=== PATIENT | female | born 1940 | race Caucasian/White ===

== ENCOUNTER 2017-03-05 19:21 | Emergency (ER) | payer MEDICARE, OTHER ==
[~2017-03-05] VITALS: Ht 154.9 cm; Wt 77.1 kg
[2017-03-05] MEDS ORDERED: CALCIUM (19:53)
[2017-03-05] MEDS ORDERED: ASPIRIN (19:53)
[2017-03-05] MEDS ORDERED: TYLENOL (19:53)
[2017-03-05] MEDS ORDERED: OLME5TAB3 (19:53)
--- NOTE | 2017-03-05 19:53 | NUR ---
PT CAN NOT REMEMBER ALL HER HOME MEDICATION. HER DOUGHTER WILL BRING HOME MEDICINE LATER.
--- NOTE | 2017-03-05 20:01 | NUR ---
LOREE RODRIGUEZ AT BEDSIDE FOR MSE.
--- NOTE | 2017-03-05 20:06 | NUR ---
PT C/O STABBING MIDLINE ABDOMINAL PAIN. DENIES N/V. DAUGHTER AT BEDSIDE. EKG COMPLETED.
[2017-03-05] MEDS ORDERED: ACETAMINOPHEN/CODEINE 300-30 MG TABLET PO ONE (20:15)
[2017-03-05] MEDS ORDERED: ACETAMINOPHEN/CODEINE 300-30 MG TABLET ONE (20:26)
[2017-03-05 20:32] LABS: BASOPHILS # (AUTO) 0.1 K/uL (0.0-8.0); EOSINOPHILS # (AUTO) 0.2 K/uL (0.0-0.7); EOSINOPHILS % (AUTO) 2.8 % (0.0-7.0); HEMATOCRIT 39.6 % (31.2-41.9); HEMOGLOBIN 13.5 g/dL (10.9-14.3); LYMPHOCYTES # (AUTO) 2.3 K/uL (20.0-40.0); LYMPHOCYTES % (AUTO) 30.9 % (20.5-51.5); MEAN CORPUSCULAR HEMOGLOBIN 29.5 uug (24.7-32.8); MEAN CORPUSCULAR HGB CONC 34 g/dL (32.3-35.6); MEAN CORPUSCULAR VOLUME 86.5 fL (75.5-95.3); MONOCYTES # (AUTO) 0.7 K/uL (2.0-10.0); MONOCYTES % (AUTO) 10.1 % (0.0-11.0); NEUTROPHILS # (AUTO) 4.1 K/uL (1.8-8.9); NEUTROPHILS % (AUTO) 55.2 % (38.5-71.5); PLATELET COUNT (AUTO) 241 K/uL (179-408); RED BLOOD CELL COUNT(AUTO) 4.58 MIL/uL (3.63-4.92); WHITE BLOOD COUNT (AUTO) 7.4 K/uL (3.8-11.8)
[2017-03-05 20:44] LABS: ALANINE AMINOTRANSFERASE 26 U/L (14-59); ALKALINE PHOSPHATASE 121 U/L (50-136); ASPARTATE AMINOTRANSFERASE 14 U/L (15-37); BILIRUBIN,DIRECT 0.1 mg/dL (0.0-0.2); BILIRUBIN,TOTAL 0.3 mg/dL (0.2-1.0); CARBON DIOXIDE 29 mmol/L (21-32); CHLORIDE 105 mmol/L (98-107); CREATININE 1.1 mg/dL (0.6-1.3); GLUCOSE 108 mg/dL (74-106); LIPASE 223 U/L (73-393); POTASSIUM 3.5 mmol/L (3.5-5.1); TOTAL PROTEIN, SERUM 7.4 g/dL (6.4-8.2); UREA NITROGEN, BLOOD 26 mg/dL (7-18)
--- NOTE | 2017-03-05 22:49 | NUR ---
Patient discharged to home in stable conditon. Written and verbal after care instructions given. Patient verbalizes understanding of instructions. PT accompanied by daughters. Ambulated from ER w/ steady gait.
[2017-03-05 23:10] VITALS: BP 148/81
== END 2017-03-05 23:05 | disposition home or self-care (01) ==
LOC: ER 19:22
DX: S22.41XD Multiple fractures of ribs, right side, subsequent encounter for fracture with routine healing (principal); K57.30 Diverticulosis of large intestine without perforation or abscess without bleeding; I10 Essential (primary) hypertension; E11.9 Type 2 diabetes mellitus without complications; J45.909 Unspecified asthma, uncomplicated; M19.90 Unspecified osteoarthritis, unspecified site; Z79.82 Long term (current) use of aspirin; X58.XXXD Exposure to other specified factors, subsequent encounter
CPT/HCPCS: 36415; 71250; 74176; 80048; 80076; 83690; 84484; 85025; 85730; 93005; 99285; A4663; 70030-TC

== ENCOUNTER 2017-10-19 10:49 | Emergency (ER) | payer MEDICARE, OTHER ==
[~2017-10-19] VITALS: Ht 154.9 cm; Wt 79.4 kg
[~2017-10-19 10:49] MED LIST: ASPIRIN; CALCIUM; OLME5TAB3; TYLENOL
[2017-10-19] MEDS ORDERED: MONT10TA22 PO (11:05)
[2017-10-19] MEDS ORDERED: FURO20TA4 PO (11:05)
[2017-10-19] MEDS ORDERED: CARV6.252 PO (11:05)
[2017-10-19] MEDS ORDERED: BROM3DRO OP (11:05)
[2017-10-19] MEDS ORDERED: GABA-534 PO (11:05)
[2017-10-19] MEDS ORDERED: DICL1ADH11 TP (11:05)
[2017-10-19] MEDS ORDERED: ASPI-605 PO (11:05)
[2017-10-19] MEDS ORDERED: CELE200C PO (11:08)
[2017-10-19] MEDS ORDERED: ROSU10TA PO (11:08)
[2017-10-19] MEDS ORDERED: [UNRECOGNIZED DRUG - OTHER] PO (11:08)
--- NOTE | 2017-10-19 11:25 | NUR ---
is at patient's bedside doing the MSE.
[2017-10-19] MEDS ORDERED: KETOROLAC TROMETHAMINE 30 MG INJ ONE (11:40)
[2017-10-19 11:44] LABS: BASOPHILS # (AUTO) 0.1 K/uL (0.0-8.0); BASOPHILS % (AUTO) 1.1 % (0.0-2.0); EOSINOPHILS # (AUTO) 0.1 K/uL (0.0-0.7); EOSINOPHILS % (AUTO) 2.2 % (0.0-7.0); HEMATOCRIT 41.1 % (31.2-41.9); HEMOGLOBIN 13.9 g/dL (10.9-14.3); LYMPHOCYTES # (AUTO) 1.8 K/uL (20.0-40.0); LYMPHOCYTES % (AUTO) 32.5 % (20.5-51.5); MEAN CORPUSCULAR HEMOGLOBIN 29.4 uug (24.7-32.8); MEAN CORPUSCULAR HGB CONC 34 g/dL (32.3-35.6); MONOCYTES # (AUTO) 0.7 K/uL (2.0-10.0); MONOCYTES % (AUTO) 11.7 % (0.0-11.0); NEUTROPHILS % (AUTO) 52.5 % (38.5-71.5); PLATELET COUNT (AUTO) 237 K/uL (179-408); RED BLOOD CELL COUNT(AUTO) 4.72 MIL/uL (3.63-4.92); WHITE BLOOD COUNT (AUTO) 5.7 K/uL (3.8-11.8)
[2017-10-19] MEDS ORDERED: KETOROLAC TROMETHAMINE 30 MG INJ IM ONE (11:45)
[2017-10-19 11:52] LABS: CARBON DIOXIDE 26 mmol/L (21-32); CHLORIDE 106 mmol/L (98-107); CREATININE 0.9 mg/dL (0.6-1.3); GLUCOSE 113 mg/dL (74-106); POTASSIUM 3.7 mmol/L (3.5-5.1); UREA NITROGEN, BLOOD 11 mg/dL (7-18)
[2017-10-19 12:08] LABS: ALANINE AMINOTRANSFERASE 25 U/L (14-59); ALKALINE PHOSPHATASE 74 U/L (50-136); ASPARTATE AMINOTRANSFERASE 16 U/L (15-37); BILIRUBIN,DIRECT 0.1 mg/dL (0.0-0.2); BILIRUBIN,TOTAL 0.4 mg/dL (0.2-1.0); TOTAL PROTEIN, SERUM 7.5 g/dL (6.4-8.2)
--- NOTE | 2017-10-19 12:17 | NUR ---
Patient discharged to home in stable conditon. Written and verbal after care instructions given to patient's daughter. Patient's daughter and patient verbalized understanding of instructions.
== END 2017-10-19 12:19 | disposition home or self-care (01) ==
LOC: ER 10:49
DX: M75.92 Shoulder lesion, unspecified, left shoulder (principal); I10 Essential (primary) hypertension; J45.909 Unspecified asthma, uncomplicated
CPT/HCPCS: 36415; 71045; 73030; 80048; 80076; 84484; 85025; 85730; 93005; 96372; 99285; A4663; J1885; 70030-TC

== ENCOUNTER 2017-11-20 13:18 | Emergency (ER) | payer MEDICARE, OTHER ==
[~2017-11-20] VITALS: Ht 154.9 cm; Wt 77.1 kg
[~2017-11-20 13:18] MED LIST changes: +ASPI-605 PO; -ASPIRIN; +BROM3DRO OP; -CALCIUM; +CARV6.252 PO; +CELE200C PO; +DICL1ADH11 TP; +FURO20TA4 PO; +GABA-534 PO; +MONT10TA22 PO; -OLME5TAB3; +ROSU10TA PO; -TYLENOL; +[UNRECOGNIZED DRUG - OTHER] PO
--- NOTE | 2017-11-20 14:00 | NUR ---
PT REFUESD THE TETANUS. PT DAUGHTER AT BEDSIDE TRANSLATING
--- NOTE | 2017-11-20 14:15 | NUR ---
SOAKED THE AFFECTED FINGER IN STERILE NS AND H2O2.
[2017-11-20] MEDS ORDERED: NEOMY/BACITRA/POLYMYXIN B OINT UD PACKET TP ONE (14:57)
--- NOTE | 2017-11-20 15:00 | NUR ---
PT TOOK THE NEEDLE OUT HER SELF, THE NEEDLE INTACT. NO BLEEDING. PT FELT RELIEF AFTER, ABLE TO MOVE THE THUMB, NO SENSORY LOSS.
--- NOTE | 2017-11-20 15:05 | NUR ---
Patient discharged to home in stable conditon. Written and verbal after care instructions given. Patient verbalizes understanding of instructions.PT WALKS IN STEADY GAIT. PT DAUGHTER WILL ARRANGE TRANSPORT FOR DAUGHTER
== END 2017-11-20 15:00 | disposition home or self-care (01) ==
LOC: ER 13:18
DX: S60.352A Superficial foreign body of left thumb, initial encounter (principal); I10 Essential (primary) hypertension; J45.909 Unspecified asthma, uncomplicated; E11.9 Type 2 diabetes mellitus without complications; W45.8XXA Other foreign body or object entering through skin, initial encounter; Y93.89 Activity, other specified; Y92.89 Other specified places as the place of occurrence of the external cause; Y99.8 Other external cause status
CPT/HCPCS: A4663

== ENCOUNTER 2019-08-15 22:30 | Emergency (ER) | payer MEDICARE, OTHER ==
[~2019-08-15] VITALS: Ht 160 cm; Wt 79.4 kg
[~2019-08-15 22:30] MED LIST changes: -ROSU10TA PO; +ROSU10TA2 PO
--- NOTE | 2019-08-15 23:22 | NUR ---
Crutches dispensed. Pt instructed on proper use of crutches. Patient able to demonstrate correct use of crutches.
--- NOTE | 2019-08-15 23:30 | NUR ---
Patient discharged to home in stable condition with daughter taking patient home. Written and verbal after care instructions given. Patient verbalizes understanding of instructions. Stressed follow up or return to ER for worsening s/s.
[2019-08-15 23:33] VITALS: BP 149/88
== END 2019-08-15 23:40 | disposition home or self-care (01) ==
LOC: ER 22:34
DX: S93.401A Sprain of unspecified ligament of right ankle, initial encounter (principal); W01.0XXA Fall on same level from slipping, tripping and stumbling without subsequent striking against object, initial encounter; Y92.89 Other specified places as the place of occurrence of the external cause; I10 Essential (primary) hypertension; E11.9 Type 2 diabetes mellitus without complications; J45.909 Unspecified asthma, uncomplicated
CPT/HCPCS: 73610; A4663

== ENCOUNTER 2020-10-20 09:45 | Emergency (ER) | payer MEDICARE, OTHER ==
[~2020-10-20] VITALS: Ht 162.6 cm; Wt 83.9 kg
[~2020-10-20 09:45] MED LIST changes: -DICL1ADH11 TP; +DICL1PAT13 TP
[2020-10-20] MEDS ORDERED: ALBU6.7H9 INH (10:17)
[2020-10-20] MEDS ORDERED: ACET-2154 PO (10:17)
--- NOTE | 2020-10-20 10:39 | NUR ---
Patient is resting comfortably on gurney with eyes closed. PATIENT IS PAIN FREE AT THIS TIME.
[2020-10-20] MEDS ORDERED: IV NORMAL SALINE 500 ML BAG IV ONE (11:00)
[2020-10-20] MEDS ORDERED: AZITHROMYCIN 250 MG TABLET PO ONE (11:00)
[2020-10-20] MEDS ORDERED: CEFTRIAXONE 1 G in IV DEXTROSE 5% 50 ML IV ONE (11:00)
[2020-10-20] MEDS ORDERED: AZITHROMYCIN 250 MG TABLET ONE (11:11)
[2020-10-20] MEDS ORDERED: CEFTRIAXONE /D5W 50ML IVPB **ER PYXIS IV ONE (11:11)
[2020-10-20 11:32] LABS: HEMATOCRIT 40.5 % (31.2-41.9); MEAN CORPUSCULAR VOLUME 86.6 fL (75.5-95.3); PLATELET COUNT (AUTO) 196 K/uL (179-408)
[2020-10-20 11:38] LABS: CREATININE 0.9 mg/dL (0.6-1.3); POTASSIUM 3.7 mmol/L (3.5-5.1)
[2020-10-20] MEDS ORDERED: AZIT250T13 PO (11:52)
--- NOTE | 2020-10-20 11:53 | NUR ---
IV removed. Catheter intact and site benign. Pressure and 4x4 gauze applied to site. No bleeding noted. Patient discharged to home in stable condition. Written and verbal after care instructions given to patient in Spanish by ALFONSO King. Patient verbalizes understanding and compliance of instructions. Stressed follow up with her primary doctor or return to ER for worsening s/s.
[2020-10-28] MEDS ORDERED: METH4TAB3 PO (08:47)
== END 2020-10-20 11:55 | disposition home or self-care (01) ==
LOC: ER 09:45
DX: U07.1 COVID-19 (principal); Z87.442 Personal history of urinary calculi; J45.909 Unspecified asthma, uncomplicated; Z87.01 Personal history of pneumonia (recurrent); E11.9 Type 2 diabetes mellitus without complications; Z79.82 Long term (current) use of aspirin; Z79.899 Other long term (current) drug therapy; I10 Essential (primary) hypertension; M19.90 Unspecified osteoarthritis, unspecified site; M85.80 Other specified disorders of bone density and structure, unspecified site; R91.8 Other nonspecific abnormal finding of lung field
CPT/HCPCS: 36415; 71045; 80048; 85025; 87040; 96365; 99284; J0696; A4663; Q0144

== ENCOUNTER 2020-10-22 21:44 | Inpatient (IN) | payer MEDICARE, OTHER ==
[~2020-10-22] VITALS: Ht 165.1 cm; Wt 84.8 kg
[~2020-10-22 21:44] MED LIST changes: +ACET-2154 PO; +ALBU6.7H9 INH; +AZIT250T13 PO
--- NOTE | 2020-10-22 22:05 | NUR ---
Dr. Galeas at bedside for MSE.
[2020-10-22 22:32] LABS: ABG BASE EXCESS -2.5 mmol/L; ABG HCO3 21.5 mmol/L; ABG PCO2 34.9 mmHg (35.0-45.0); ABG PH 7.407 (7.350-7.450); ABG PO2 59.8 mmHg (75.0-100.0); ABG SITE LEFT RADIAL; ABG TOTAL HEMOGLOBIN 15.2 G/dL (12.0-16.0); COHb 1.2 % (0.5-1.5); O2Hb 89.9 % (94.0-97.0); VENT MODE ROOM AIR
--- NOTE | 2020-10-22 22:35 | NUR ---
Xray at bedside.
[2020-10-22] MEDS ORDERED: IV NS 1000 ML 1,000 ML IV ONE (23:00)
[2020-10-22] MEDS ORDERED: DEXAMETHASONE SOD PHOSPHATE 4 MG INJ IV ONE (23:00)
[2020-10-22] MEDS ORDERED: AZITHROMYCIN IV 500 MG in IV DEXTROSE 5% 250 ML IV ONE (23:00)
[2020-10-22] MEDS ORDERED: CEFTRIAXONE 1 G in IV DEXTROSE 5% 50 ML IV ONE (23:00)
[2020-10-22 23:04] LABS: MEAN CORPUSCULAR HEMOGLOBIN 28.9 uug (24.7-32.8); MEAN CORPUSCULAR VOLUME 86.1 fL (75.5-95.3); PLATELET COUNT (AUTO) 173 K/uL (179-408)
[2020-10-22] MEDS ORDERED: CEFTRIAXONE /D5W 50ML IVPB **ER PYXIS IV ONE (23:06)
[2020-10-22] MEDS ORDERED: DEXAMETHASONE SOD PHOSPHATE 10 MG INJ ONE (23:07)
[2020-10-22] MEDS ORDERED: AZITHROMYCIN 500MG/ D5W 250ML IVPB **ER PYXIS ONLY IV ONE (23:07)
[2020-10-22] MEDS ORDERED: ONDANSETRON 4 MG/2 ML VIAL ONE (23:10)
[2020-10-22 23:12] LABS: POTASSIUM 3.4 mmol/L (3.5-5.1)
[2020-10-22] MEDS ORDERED: ONDANSETRON 4 MG/2 ML VIAL IV ONE (23:15)
[2020-10-22 23:30] LABS: BILIRUBIN,TOTAL 0.4 mg/dL (0.2-1.0); TOTAL PROTEIN, SERUM 7.8 g/dL (6.4-8.2)
--- NOTE | 2020-10-22 23:34 | NUR ---
Language barrier present. Mostly burundian speaking. Patient unable to recall home medications at this time. Called patient's daughter, Alejandro Rick who states patient is non complaint with home medications and is unable to provide complete home medication at thsi time.
--- NOTE | 2020-10-23 00:05 | NUR ---
Called [facility] to page Dr. Chan Yanes.
--- NOTE | 2020-10-23 00:25 | NUR ---
Dr. Galeas on panel call with Dr. Chan Yanes. Pt accepted for admission to [facility], diagnosis: covid pneumonia.
[2020-10-23] MEDS ORDERED: MAGNESIUM HYDROXIDE 30 ML LIQUID UDC PO PRN (00:45)
[2020-10-23] MEDS ORDERED: Z GUARD REMEDY PASTE 57 GM TUBE TOP PRN (00:45)
[2020-10-23] MEDS ORDERED: HYDROCODONE/APAP 5-325MG TABLET PO PRN (00:45)
[2020-10-23] MEDS ORDERED: ONDANSETRON 4 MG/2 ML VIAL IV PRN (00:45)
--- NOTE | 2020-10-23 01:36 | NUR ---
Report given to [facility] Tele.
[2020-10-23 02:31] VITALS: BP 122/68
[2020-10-23] MEDS: ENOXAPARIN SODIUM 40 MG/0.4 ML DISP.SYRIN SQ SCH ×2 (02:44→20:25)
[2020-10-23 04:45] VITALS: BP 101/52
[2020-10-23] MEDS: PANTOPRAZOLE SODIUM 40 MG TABLET.DR PO SCH (06:04)
--- NOTE | 2020-10-23 06:52 | NUR ---
Pt admitted to Tele in stable condition. Denies pain or SOB. Denies having nausea at this time. On 3L NC sating at 93%. IV site is intact. Covid precautions are in place. Safety and comfort provided, will endorse to day shift.
--- NOTE | 2020-10-23 07:30 | NUR ---
RECEIVED PT AWAKE, ALERT AND ORIENTEDX4. PT IN NO ACUTE RESPIRATORY DISTRESS. PT ON 2L NASAL CANNULA. PT CAN MAKE HER NEEDS KNOWN. SAFETY AND COMFORT PROVIDED. WILL CONTINUE TO MONITOR.
[2020-10-23] MEDS: ASPIRIN EC 81 MG TABLET.DR PO SCH (08:31)
[2020-10-23] MEDS: GABAPENTIN 300 MG CAPSULE PO SCH ×2 (08:31→16:21)
[2020-10-23] MEDS: CARVEDILOL 6.25 MG TABLET PO SCH (08:39)
[2020-10-23] MEDS: ALBUTEROL SULFATE 8 GM HFA.AER.AD INH SCH ×4 (09:30→21:00)
[2020-10-23 11:43] VITALS: BP 101/64
[2020-10-23] MEDS ORDERED: REMDESIVIR (CHARGED) 200 MG in IV NORMAL SALINE 210 ML IV ONE (13:00)
[2020-10-23] MEDS: POTASSIUM CHLORIDE 20 MEQ in IV NS 1000 ML 1,000 ML IV PRN (15:43)
[2020-10-23 16:00] VITALS: BP 102/61
--- NOTE | 2020-10-23 16:21 | NUR ---
PT REFUSED VENTOLIN INHALER. PT STATED SHE'S FINE FOR NOW. PT IN NO ACUTE DISTRESS. 2 INVENTORY REPRESENTATIVE EXTENSION GIVEN TO PT. 1 BLACK, 1 WHITE.
--- NOTE | 2020-10-23 18:11 | NUR ---
PT IN NO ACUTE DISTRESS. PT ON 2L NASAL CANNULA. PT REMDESIVIR ONE TIME GIVEN . PT TOLERATED IT WELL. PT IV INTACT.PRESCRIBED MEDICATION GIVEN AND PT TOLERATED IT WELL. PT CAN MAKE HER NEEDS KNOWN. SAFETY AND COMFORT PROVIDED. WILL CONTINUE ENDORSE TO INCOMING NURSE FOR CONTINUITY OF CARE.
[2020-10-23 20:00] VITALS: BP 105/50
[2020-10-23] MEDS: ATORVASTATIN 20 MG TABLET PO SCH (20:23)
[2020-10-23] MEDS: DEXAMETHASONE SOD PHOSPHATE 10 MG INJ IV SCH (20:23)
[2020-10-24] VITALS (7 sets, daily range): BP systolic 95–136; BP diastolic 46–89
[2020-10-24] MEDS: POTASSIUM CHLORIDE 20 MEQ in IV NS 1000 ML 1,000 ML IV PRN (03:15)
[2020-10-24] MEDS: PANTOPRAZOLE SODIUM 40 MG TABLET.DR PO SCH (06:11)
[2020-10-24 06:31] LABS: HEMATOCRIT 41.6 % (31.2-41.9); MEAN CORPUSCULAR VOLUME 87.3 fL (75.5-95.3); PLATELET COUNT (AUTO) 204 K/uL (179-408)
--- NOTE | 2020-10-24 06:50 | NUR ---
Patient AAOX4, no sob, no respiratory distress noted, o2 2LPm via NC, will continue to monitor for breathing.
[2020-10-24 07:31] LABS: THYROID STIMULATING HORMONE 0.147 mIU/mL (0.358-3.740)
[2020-10-24 07:38] LABS: MAGNESIUM 2.4 mg/dL (1.8-2.4); PHOSPHOROUS 3.2 mg/dL (2.5-4.9); POTASSIUM 4.6 mmol/L (3.5-5.1)
[2020-10-24] MEDS ORDERED: SWABABLE VALVE TRANSFER SET EA MC ONE (07:48)
[2020-10-24] MEDS ORDERED: IV NORMAL SALINE 250 ML IV ONE (07:49)
[2020-10-24] MEDS ORDERED: IOHEXOL 300MG/ML 100 ML INFUS..BTL ONE (07:49)
[2020-10-24] MEDS: DEXAMETHASONE SOD PHOSPHATE 10 MG INJ IV SCH (09:04)
[2020-10-24] MEDS: CARVEDILOL 6.25 MG TABLET PO SCH (09:04)
[2020-10-24] MEDS: GABAPENTIN 300 MG CAPSULE PO SCH ×2 (09:04→16:53)
[2020-10-24] MEDS: ASPIRIN EC 81 MG TABLET.DR PO SCH (09:29)
[2020-10-24 09:35] LABS: ALANINE AMINOTRANSFERASE 26 U/L (14-59); ASPARTATE AMINOTRANSFERASE 32 U/L (15-37)
[2020-10-24] MEDS: REMDESIVIR (CHARGED) 100 MG in IV NORMAL SALINE 100 ML IV SCH (11:44)
[2020-10-24] MEDS ORDERED: ALBUTEROL SULFATE 8 GM HFA.AER.AD INH PRN (13:00)
--- NOTE | 2020-10-24 18:30 | NUR ---
Patient is alert/oriented x4. Denies pain during the shift. Patient is refusing oxygen, she is saturating at 96% on RA. PCR COVID TEST is positive per [facility] report form the lab. Dr Tamayo made aware. ordered ECHO for cardionamegaly and congestion, done at 1800H. No distress identified. Frequent visual check done. Kept call light within reach. Assisted with ADLs. All needs attended. Kept environment safe. All due meds given as ordered. Will endorse to the next shift for continuity of care.
[2020-10-24] MEDS: ATORVASTATIN 20 MG TABLET PO SCH (20:20)
[2020-10-24] MEDS: ENOXAPARIN SODIUM 40 MG/0.4 ML DISP.SYRIN SQ SCH (20:37)
[2020-10-25 00:09] VITALS: BP 120/54
[2020-10-25 04:00] VITALS: BP 108/57
[2020-10-25 04:25] VITALS: BP 108/57
[2020-10-25] MEDS: PANTOPRAZOLE SODIUM 40 MG TABLET.DR PO SCH (06:04)
[2020-10-25 08:04] LABS: BILIRUBIN,DIRECT 0.1 mg/dL (0.0-0.2); BILIRUBIN,TOTAL 0.3 mg/dL (0.2-1.0); CREATININE 0.9 mg/dL (0.6-1.3); POTASSIUM 4.2 mmol/L (3.5-5.1); TOTAL PROTEIN, SERUM 6.3 g/dL (6.4-8.2)
[2020-10-25] MEDS: ACETAMINOPHEN 325 MG TABLET PO PRN ×2 (08:20→20:32)
[2020-10-25] MEDS: ASPIRIN EC 81 MG TABLET.DR PO SCH (08:20)
[2020-10-25] MEDS: CARVEDILOL 6.25 MG TABLET PO SCH (08:21)
[2020-10-25] MEDS: GABAPENTIN 300 MG CAPSULE PO SCH ×2 (08:21→16:11)
[2020-10-25] MEDS: DEXAMETHASONE SOD PHOSPHATE 10 MG INJ IV SCH (08:23)
--- NOTE | 2020-10-25 11:21 | NUR ---
NO ACUTE CHANGE FROM MORNING ASSESSMENT SATURATING 93% ON 3L NC. UP AND ABOUT IN ROOM, BRP
[2020-10-25 11:28] LABS: HEMATOCRIT 37.9 % (31.2-41.9); MEAN CORPUSCULAR HEMOGLOBIN 29.2 uug (24.7-32.8); PLATELET COUNT (AUTO) 204 K/uL (179-408)
[2020-10-25 12:00] VITALS: BP 111/79
[2020-10-25] MEDS: REMDESIVIR (CHARGED) 100 MG in IV NORMAL SALINE 100 ML IV SCH (12:59)
[2020-10-25 16:00] VITALS: BP 104/59
--- NOTE | 2020-10-25 20:00 | NUR ---
Received patient lying in bed AAOx3. Denies any pain or SOB. Sinus angela on tele at 56/min. IV site on right wrist intact and patent. COVID precaution observed. Needs assessed and attended to. Safety measure initiated and call montgomery within reached. Addendum: 10/25/20 at 2134 by EM JARRETT RN On O2 at 3LPM via NC. O2 sat at 98%. No coughing noted.
[2020-10-25 20:25] VITALS: BP 125/55
[2020-10-25] MEDS: ENOXAPARIN SODIUM 40 MG/0.4 ML DISP.SYRIN SQ SCH (20:32)
[2020-10-25] MEDS: ATORVASTATIN 20 MG TABLET PO SCH (20:32)
[2020-10-26 00:20] VITALS: BP 123/56
[2020-10-26 04:25] VITALS: BP 126/61
--- NOTE | 2020-10-26 06:03 | NUR ---
Patient slept well last night. Remains AAOx3. Denies any pain or SOB. Sinus angela on tele at 52/min. IV site on right wrist intact and patent. O2 at 3LPM via NC in place. O2 sat at 98%. No coughing noted. Afebrile. COVID precaution maintained. Needs attended to and met. Safety measure maintained and call montgomery within reached.
[2020-10-26] MEDS: PANTOPRAZOLE SODIUM 40 MG TABLET.DR PO SCH (06:10)
[2020-10-26 06:35] LABS: HEMATOCRIT 38.3 % (31.2-41.9); MEAN CORPUSCULAR HEMOGLOBIN 29.1 uug (24.7-32.8); MEAN CORPUSCULAR VOLUME 84.7 fL (75.5-95.3); PLATELET COUNT (AUTO) 197 K/uL (179-408)
[2020-10-26 07:04] LABS: BILIRUBIN,DIRECT 0.1 mg/dL (0.0-0.2); BILIRUBIN,TOTAL 0.3 mg/dL (0.2-1.0); CREATININE 0.9 mg/dL (0.6-1.3); TOTAL PROTEIN, SERUM 6.4 g/dL (6.4-8.2)
--- NOTE | 2020-10-26 07:45 | NUR ---
AWAKE ALERT AND ORIENTED X3 NO SS OF PAIN OR SOB WITH 3L O2 NC SATURATING 92-93%. CONTINUE WITH PLAN OF CARE.
[2020-10-26] MEDS: ASPIRIN EC 81 MG TABLET.DR PO SCH (08:17)
[2020-10-26] MEDS: DEXAMETHASONE SOD PHOSPHATE 10 MG INJ IV SCH (08:18)
[2020-10-26] MEDS: CARVEDILOL 6.25 MG TABLET PO SCH (08:19)
[2020-10-26] MEDS: ACETAMINOPHEN 325 MG TABLET PO PRN (08:20)
[2020-10-26] MEDS: GABAPENTIN 300 MG CAPSULE PO SCH ×2 (08:20→15:40)
[2020-10-26] MEDS: GUAIFENESIN/CODEINE 5 ML LIQUID UDC PO PRN ×2 (09:09→19:35)
[2020-10-26 12:00] VITALS: BP 117/64
[2020-10-26] MEDS: REMDESIVIR (CHARGED) 100 MG in IV NORMAL SALINE 100 ML IV SCH (12:29)
--- NOTE | 2020-10-26 14:58 | NUR ---
TOLERATING O2 AT 3L NC SATURATING 93%. DENIES PAIN OR SOB SB ON MONITOR
[2020-10-26 16:00] VITALS: BP 121/62
[2020-10-26 20:20] VITALS: BP 134/84
[2020-10-26] MEDS: ENOXAPARIN SODIUM 40 MG/0.4 ML DISP.SYRIN SQ SCH (20:22)
[2020-10-26] MEDS: ATORVASTATIN 20 MG TABLET PO SCH (20:22)
--- NOTE | 2020-10-26 21:12 | NUR ---
Received pt resting in bed. AAO x4, Singaporean speaking, able to make needs known. On 3L O2 via NC, no acute distress noted. Due meds given as ordered. Robitussin given. Safety measures maintained. Call light and personal items within reach. Will continue to monitor.
[2020-10-27 00:10] VITALS: BP 141/68
[2020-10-27 04:25] VITALS: BP 126/68
--- NOTE | 2020-10-27 04:58 | NUR ---
Pt slept comfortably t/o the night. No acute distress noted. BRP. No SOB or CP. Sinus Cristo on tele at 50/min. VS WNL. Will endorse accordingly.
[2020-10-27] MEDS: PANTOPRAZOLE SODIUM 40 MG TABLET.DR PO SCH (06:09)
[2020-10-27 06:42] LABS: HEMATOCRIT 43.1 % (31.2-41.9); MEAN CORPUSCULAR HEMOGLOBIN 28.8 uug (24.7-32.8); MEAN CORPUSCULAR VOLUME 85.6 fL (75.5-95.3); PLATELET COUNT (AUTO) 259 K/uL (179-408)
[2020-10-27 06:58] LABS: BILIRUBIN,DIRECT 0.1 mg/dL (0.0-0.2); BILIRUBIN,TOTAL 0.4 mg/dL (0.2-1.0); CREATININE 0.8 mg/dL (0.6-1.3); POTASSIUM 4.5 mmol/L (3.5-5.1); TOTAL PROTEIN, SERUM 7.2 g/dL (6.4-8.2)
[2020-10-27 07:45] VITALS: BP 133/81
[2020-10-27] MEDS: GABAPENTIN 300 MG CAPSULE PO SCH ×2 (08:51→18:28)
[2020-10-27] MEDS: GUAIFENESIN/CODEINE 5 ML LIQUID UDC PO PRN ×2 (08:51→18:38)
[2020-10-27] MEDS: ASPIRIN EC 81 MG TABLET.DR PO SCH (08:53)
[2020-10-27] MEDS: CARVEDILOL 6.25 MG TABLET PO SCH (08:53)
[2020-10-27] MEDS: ENSURE ENLIVE (VAN) 240 ML LIQUID PO SCH (08:57)
[2020-10-27] MEDS: DEXAMETHASONE SOD PHOSPHATE 10 MG INJ IV SCH (08:57)
[2020-10-27] MEDS: REMDESIVIR (CHARGED) 100 MG in IV NORMAL SALINE 100 ML IV SCH (11:51)
[2020-10-27 11:58] VITALS: BP 132/69
[2020-10-27 15:48] VITALS: BP 104/54
[2020-10-27] MEDS: ATORVASTATIN 20 MG TABLET PO SCH (20:02)
[2020-10-27] MEDS: ENOXAPARIN SODIUM 40 MG/0.4 ML DISP.SYRIN SQ SCH (20:02)
[2020-10-27 20:25] VITALS: BP 117/58
--- NOTE | 2020-10-27 22:30 | NUR ---
Received pt on bed, on continuous O2 at 2L via NC saturating 93-95%. No acute distress noted. Alert and oriented x4, Croatian speaking. No s/sx of pain and discomfort at this time. Due medications given on time and tolerated well. All needs attended. Will continue to monitor.
[2020-10-28 00:15] VITALS: BP 116/62
[2020-10-28 04:20] VITALS: BP 110/54
[2020-10-28] MEDS: PANTOPRAZOLE SODIUM 40 MG TABLET.DR PO SCH (06:12)
--- NOTE | 2020-10-28 06:31 | NUR ---
Pt slept throughout the night, on continuous O2 at 2L via NC saturating 95%. No acute distress noted. No s/sx of pain and discomfort at this time. All needs attended. Call light placed within reach. Frequent visual checks done. Will endorse to next shift for continuity of care.
--- NOTE | 2020-10-28 07:30 | NUR ---
Received pt awake, alert and oriented times 4 in bed. Patient is Angolan speaking but is able to make needs known. Pt is on 2L pf oxygen NC, saturating well. No respiratory distress noted at this time. Safety measures implemented call light placed within reach. Will continue to monitor.
[2020-10-28] MEDS: GABAPENTIN 300 MG CAPSULE PO SCH ×2 (08:27→16:41)
[2020-10-28] MEDS: ASPIRIN EC 81 MG TABLET.DR PO SCH (08:27)
[2020-10-28] MEDS: ENSURE ENLIVE (VAN) 240 ML LIQUID PO SCH (08:27)
[2020-10-28] MEDS: DEXAMETHASONE SOD PHOSPHATE 10 MG INJ IV SCH (08:27)
[2020-10-28] MEDS: CARVEDILOL 6.25 MG TABLET PO SCH (08:40)
[2020-10-28] MEDS ORDERED: METH4TAB3 PO (08:47)
[2020-10-28] MEDS: GUAIFENESIN/CODEINE 5 ML LIQUID UDC PO PRN (10:12)
[2020-10-28 11:55] VITALS: BP 91/52
--- NOTE | 2020-10-28 14:30 | NUR ---
Patient's oxygen is at 88% at rest. Made spring encaser aware to prepare patient for discharge planning. Will continue to monitor. Addendum: 10/28/20 at 1505 by UMM CASTILLO RN Patient's oxygen is at 88% at rest on room air. Made spring encaser aware to prepare patient for discharge planning. Will continue to monitor.
[2020-10-28 15:32] VITALS: BP 106/43
--- NOTE | 2020-10-28 17:00 | NUR ---
Patient sent home with all paperwork and medications list. Patient picked up by in a private vehicle. Patient's family was informed by case consultant to wait for the delivery of the oxygen tank to bring when picking up patient. arrived without tank to take patient home. ID band and IV removed. All belongings sent home with the patient. Discharge teaching completed. Family informed of medication sent to the pharmacy on file to be picked up. All medications given as ordered.
== END 2020-10-28 17:00 | disposition home or self-care (01) | DRG 177 ==
LOC: ER 21:46 → TELE3 10-23 01:45
PROVIDERS: ADMIT Internal Medicine; ATTEND Internal Medicine
PROC: XW033E5 Introduction of Remdesivir Anti-infective into Peripheral Vein, Percutaneous Approach, New Technology Group 5 (ICD-10-PCS; principal; 2020-10-23)
DX: U07.1 COVID-19 (principal); J12.82 Pneumonia due to coronavirus disease 2019; J96.01 Acute respiratory failure with hypoxia; I69.351 Hemiplegia and hemiparesis following cerebral infarction affecting right dominant side; E66.9 Obesity, unspecified; J45.909 Unspecified asthma, uncomplicated; K44.9 Diaphragmatic hernia without obstruction or gangrene; M19.90 Unspecified osteoarthritis, unspecified site; Z79.82 Long term (current) use of aspirin; Z87.442 Personal history of urinary calculi; Z87.01 Personal history of pneumonia (recurrent); Z90.710 Acquired absence of both cervix and uterus; E87.6 Hypokalemia; Z68.31 Body mass index [BMI] 31.0-31.9, adult; K21.9 Gastro-esophageal reflux disease without esophagitis; E11.9 Type 2 diabetes mellitus without complications; E78.5 Hyperlipidemia, unspecified; K57.30 Diverticulosis of large intestine without perforation or abscess without bleeding; I10 Essential (primary) hypertension
CPT/HCPCS: 36415; 36600; 70030-TC; 71045; 83605; 83615; 83735; 84100; 84443; 84450; 84460; 85025; 85610; 85730; 86140; 87040; 87400; 93005; 93307; A4663; G0378; J0456; J0696; J1100; J1650; J2405; J3480; J3490; J3535; J7030; J7040; J7050; J7060; Q9967; U0003

== ENCOUNTER 2024-10-05 12:37 | Inpatient (IN) | payer MEDICARE, OTHER ==
[~2024-10-05] VITALS: Ht 157.5 cm; Wt 84.4 kg
[~2024-10-05 12:37] MED LIST changes: -ACET-2154 PO; -BROM3DRO OP; -CELE200C PO; -DICL1PAT13 TP; -FURO20TA4 PO; +METH4TAB3 PO; -MONT10TA22 PO
[2024-10-05 14:03] LABS: PLATELET COUNT (AUTO) 271 K/uL (179-408); RED BLOOD CELL COUNT(AUTO) 4.59 MIL/uL (3.63-4.92); RED CELL DISTRIBUTION WIDTH 13.6 % (12.3-17.7); WHITE BLOOD COUNT (AUTO) 11.4 K/uL (3.8-11.8)
[2024-10-05 14:15] VITALS: O2SAT 97
[2024-10-05 14:22] LABS: CREATININE 0.8 mg/dL (0.6-1.3); SODIUM SERUM 140 mmol/L (136-145); UREA NITROGEN, BLOOD 18 mg/dL (7-18)
[2024-10-05] MEDS ORDERED: CEFTRIAXONE /D5W 50ML IVPB **ER PYXIS IV ONE (15:22)
[2024-10-05] MEDS ORDERED: AZITHROMYCIN 500MG/ D5W 250ML IVPB **ER PYXIS ONLY IV ONE (15:53)
[2024-10-05] MEDS: AZITHROMYCIN IV 500 MG in IV DEXTROSE 5% 250 ML IV ONE (15:57)
[2024-10-05 16:37] VITALS: BP 113/72
[2024-10-05] MEDS ORDERED: OLME40TA12 PO (17:01)
[2024-10-05] MEDS ORDERED: ATOR20TA PO (17:01)
[2024-10-05] MEDS ORDERED: METO100T14 PO (17:01)
[2024-10-05] MEDS ORDERED: AMYL1CAP58 PO (17:06)
[2024-10-05] MEDS ORDERED: MAGN400T40 PO (17:06)
[2024-10-05] MEDS ORDERED: AMLO2.5T4 PO (17:08)
[2024-10-05] MEDS ORDERED: HYDROCODONE/APAP 5-325MG TABLET PO PRN (18:30)
[2024-10-05] MEDS ORDERED: ACETAMINOPHEN 325 MG TABLET PO PRN (18:30)
[2024-10-05] MEDS ORDERED: MAGNESIUM HYDROXIDE 30 ML LIQUID UDC PO PRN (18:30)
[2024-10-05] MEDS ORDERED: ALBUTEROL SULFATE 2.5 MG/3 ML NEBU NEB PRN (18:30)
[2024-10-05] MEDS ORDERED: ONDANSETRON 4 MG/2 ML VIAL IV PRN (18:30)
[2024-10-05 18:45] VITALS: BP 120/59; TEMP 98.4; O2SAT 95
[2024-10-05] MEDS ORDERED: METO-358 PO (19:01)
[2024-10-05 19:20] VITALS: BP 144/72; TEMP 98.1; O2SAT 96
[2024-10-05] MEDS: DOCUSATE SODIUM 100 MG CAPSULE PO SCH (21:10)
[2024-10-05] MEDS: GUAIFENESIN/DEXTROMETHORPHAN 5 ML UDC PO PRN (21:16)
[2024-10-06 02:49] VITALS: O2SAT 97
[2024-10-06 06:44] VITALS: BP 131/81; TEMP 98; O2SAT 97
[2024-10-06 06:50] LABS: PLATELET COUNT (AUTO) 305 K/uL (179-408); RED BLOOD CELL COUNT(AUTO) 4.57 MIL/uL (3.63-4.92); RED CELL DISTRIBUTION WIDTH 13.5 % (12.3-17.7); WHITE BLOOD COUNT (AUTO) 8.4 K/uL (3.8-11.8)
[2024-10-06] MEDS: PANTOPRAZOLE SODIUM 40 MG TABLET.DR PO SCH (06:51)
[2024-10-06 07:09] LABS: ASPARTATE AMINOTRANSFERASE 10 U/L (15-37); CREATININE 0.8 mg/dL (0.6-1.3); SODIUM SERUM 138 mmol/L (136-145); TOTAL PROTEIN, SERUM 7.8 g/dL (6.4-8.2); UREA NITROGEN, BLOOD 16 mg/dL (7-18)
[2024-10-06 07:55] LABS: IRON, SERUM 23 ug/dL (50-175)
[2024-10-06 08:00] VITALS: BP 130/65; TEMP 97.9; O2SAT 96
[2024-10-06] MEDS ORDERED: ACET-73 PO (11:41)
[2024-10-06] MEDS ORDERED: APAP/CODEINE 300-30 PO (11:43)
[2024-10-06] MEDS ORDERED: ASPI-1420 PO (11:44)
[2024-10-06] MEDS ORDERED: ALBU18HF2 IH (11:44)
[2024-10-06] MEDS ORDERED: SOLI10TA7 PO (11:45)
[2024-10-06] MEDS ORDERED: POTA8TAB58 PO (11:46)
[2024-10-06] MEDS ORDERED: OMEPRA PO (11:47)
[2024-10-06] MEDS ORDERED: [UNRECOGNIZED DRUG - OTHER] PO (11:47)
[2024-10-06] MEDS ORDERED: ERGO500040 PO (11:48)
[2024-10-06] MEDS ORDERED: DICL100G31 TP (11:53)
[2024-10-06] MEDS ORDERED: POLY17PO20 PO (11:54)
[2024-10-06] MEDS ORDERED: MOUNJARO SQ (11:57)
[2024-10-06] MEDS ORDERED: DOCU100C58 PO (11:58)
[2024-10-06] MEDS ORDERED: PROCTO MED TOP (11:59)
[2024-10-06 12:00] VITALS: BP 96/64; TEMP 97.9; O2SAT 97
[2024-10-06 16:00] VITALS: BP 120/65; TEMP 98; O2SAT 96
[2024-10-06] MEDS: AZITHROMYCIN IV 500 MG in IV DEXTROSE 5% 250 ML IV SCH (17:10)
[2024-10-06 19:28] VITALS: BP 129/63; TEMP 97.7; O2SAT 94
[2024-10-07 06:04] VITALS: BP 106/60; TEMP 97.9; O2SAT 95
[2024-10-07 10:45] VITALS: BP 159/61; TEMP 97.5; O2SAT 98
[2024-10-07] MEDS: FERROUS GLUCONATE 324 MG TABLET PO SCH (11:43)
[2024-10-07] MEDS: AZITHROMYCIN 250 MG TABLET PO SCH (14:27)
[2024-10-07 16:53] VITALS: BP 149/82; TEMP 97.8; O2SAT 94
[2024-10-07 19:00] VITALS: BP 136/67; TEMP 97.8; O2SAT 100
[2024-10-08 06:00] VITALS: BP 151/72; TEMP 98.8; O2SAT 97
[2024-10-08 07:17] LABS: PLATELET COUNT (AUTO) 346 K/uL (179-408); RED BLOOD CELL COUNT(AUTO) 4.70 MIL/uL (3.63-4.92); RED CELL DISTRIBUTION WIDTH 13.5 % (12.3-17.7); WHITE BLOOD COUNT (AUTO) 13.4 K/uL (3.8-11.8)
[2024-10-08 07:33] LABS: CREATININE 0.9 mg/dL (0.6-1.3); SODIUM SERUM 140 mmol/L (136-145); UREA NITROGEN, BLOOD 21 mg/dL (7-18)
[2024-10-08] MEDS ORDERED: METH4TAB3 PO (14:33)
[2024-10-08] MEDS ORDERED: ALBU8.5H8 INH (14:33)
[2024-10-08] MEDS ORDERED: AMOX-430 PO (14:33)
== END 2024-10-08 16:15 | disposition home health service (06) | DRG 178 ==
LOC: ER 12:37 → MEDSURG3 15:47
PROVIDERS: ADMIT Internal Medicine; ATTEND Internal Medicine
DX: J15.69 Pneumonia due to other Gram-negative bacteria (principal); G90.511 Complex regional pain syndrome I of right upper limb; I69.351 Hemiplegia and hemiparesis following cerebral infarction affecting right dominant side; J45.901 Unspecified asthma with (acute) exacerbation; J20.9 Acute bronchitis, unspecified; E11.9 Type 2 diabetes mellitus without complications; G47.33 Obstructive sleep apnea (adult) (pediatric); Z79.82 Long term (current) use of aspirin; M15.9 Polyosteoarthritis, unspecified; Z86.16 Personal history of COVID-19; Z87.01 Personal history of pneumonia (recurrent); K21.9 Gastro-esophageal reflux disease without esophagitis; M81.0 Age-related osteoporosis without current pathological fracture; Z68.34 Body mass index [BMI] 34.0-34.9, adult; E66.9 Obesity, unspecified; E78.5 Hyperlipidemia, unspecified; Z90.49 Acquired absence of other specified parts of digestive tract; Z87.442 Personal history of urinary calculi; Z87.39 Personal history of other diseases of the musculoskeletal system and connective tissue; Z87.19 Personal history of other diseases of the digestive system; I11.9 Hypertensive heart disease without heart failure; I70.0 Atherosclerosis of aorta; Z79.899 Other long term (current) drug therapy; R06.03 Acute respiratory distress
CPT/HCPCS: 36415; 71045; 83550; 83735; 84100; 84443; 84484; 85025; 87040; 87070; 87077; 93005; 93307; 94640; A4606; A4663; G0378; J0456; J0696; J2919; J7050; Q0144

== ENCOUNTER 2024-11-14 12:39 | Emergency (ER) | payer MEDICARE, OTHER ==
[~2024-11-14] VITALS: Ht 157.5 cm; Wt 83.9 kg
[~2024-11-14 12:39] MED LIST changes: +ACET-73 PO; -ALBU6.7H9 INH; +ALBU8.5H8 INH; +AMOX-430 PO; +AMYL1CAP58 PO; +APAP/CODEINE 300-30 PO; +ASPI-1420 PO; -ASPI-605 PO; +ATOR20TA PO; -AZIT250T13 PO; -CARV6.252 PO; +DICL100G31 TP; +DOCU100C58 PO; +ERGO500040 PO; -GABA-534 PO; +MAGN400T40 PO; +METO-358 PO; +MOUNJARO SQ; +OLME40TA12 PO; +OMEPRA PO; +POLY17PO20 PO; +POTA8TAB58 PO; +PROCTO MED TOP; -ROSU10TA2 PO; +SOLI10TA7 PO; +[UNRECOGNIZED DRUG - OTHER] PO; -[UNRECOGNIZED DRUG - OTHER] PO
[2024-11-14 12:46] VITALS: BP 155/89
[2024-11-14] MEDS ORDERED: diphenhydrAMINE 50 MG/1 ML VIAL ONE (13:41)
[2024-11-14] MEDS ORDERED: HYDROMORPHONE 1 MG/1 ML DISP.SYRIN ONE (13:42)
[2024-11-14] MEDS: HYDROMORPHONE 1 MG/1 ML DISP.SYRIN IM ONE (13:45)
[2024-11-14] MEDS: diphenhydrAMINE 50 MG/1 ML VIAL IM ONE (13:45)
[2024-11-14] MEDS ORDERED: HYDR-3980 PO (16:19)
[2024-11-14 16:38] VITALS: BP 145/80; TEMP 97.6; O2SAT 98
== END 2024-11-14 16:42 | disposition home or self-care (01) ==
LOC: ER 12:50
DX: S32.058A Other fracture of fifth lumbar vertebra, initial encounter for closed fracture (principal); J45.909 Unspecified asthma, uncomplicated; I10 Essential (primary) hypertension; E11.9 Type 2 diabetes mellitus without complications; M19.90 Unspecified osteoarthritis, unspecified site; Z87.2 Personal history of diseases of the skin and subcutaneous tissue; Z87.19 Personal history of other diseases of the digestive system; Z79.82 Long term (current) use of aspirin; Z79.899 Other long term (current) drug therapy; Z87.01 Personal history of pneumonia (recurrent); W07.XXXA Fall from chair, initial encounter; Y93.89 Activity, other specified; Y92.89 Other specified places as the place of occurrence of the external cause; Y99.8 Other external cause status
CPT/HCPCS: 99284; 72110; 73502; 96372 ×2; 72170; J1200; J1171; A4606; A4663

== ENCOUNTER 2025-01-22 14:54 | Emergency (ER) | payer MEDICARE, OTHER ==
[~2025-01-22] VITALS: Ht 160 cm; Wt 87.1 kg
[~2025-01-22 14:54] MED LIST changes: +AMOX-319 PO; -AMOX-430 PO; -DICL100G31 TP; +DICL100G61 TP; +ERGO125010 PO; -ERGO500040 PO; +HYDR-3980 PO; -SOLI10TA7 PO; +SOLI10TA8 PO
[2025-01-22] MEDS ORDERED: ONDANSETRON 4 MG/2 ML VIAL ONE (15:46)
[2025-01-22] MEDS ORDERED: HYDROMORPHONE 1 MG/1 ML DISP.SYRIN ONE (15:46)
[2025-01-22] MEDS: HYDROMORPHONE 1 MG/1 ML DISP.SYRIN IV ONE (15:59)
[2025-01-22] MEDS: ONDANSETRON 4 MG/2 ML VIAL IV ONE (15:59)
[2025-01-22] MEDS ORDERED: PROPOFOL 200 MG/20 ML BOTTLE ONE (16:32)
[2025-01-22] MEDS ORDERED: FENTANYL CITRATE 100 MCG/2 ML AMPUL ONE (16:32)
[2025-01-22 16:45] VITALS: O2SAT 100
[2025-01-22] MEDS: FENTANYL CITRATE 100 MCG/2 ML AMPUL IV ONE (16:47)
[2025-01-22] MEDS: PROPOFOL 200 MG/20 ML BOTTLE IV ONE (16:47)
[2025-01-22 17:00] VITALS: BP 112/61
[2025-01-22] MEDS ORDERED: ACET1TAB93 PO (17:55)
[2025-01-22 19:17] VITALS: BP 128/76; TEMP 98; O2SAT 97
== END 2025-01-22 18:33 | disposition home or self-care (01) ==
LOC: EDBD 15:12 → MERGE 15:12 → ER 15:12
DX: S52.531A Colles' fracture of right radius, initial encounter for closed fracture (principal); S62.101A Fracture of unspecified carpal bone, right wrist, initial encounter for closed fracture; S52.614A Nondisplaced fracture of right ulna styloid process, initial encounter for closed fracture; W01.0XXA Fall on same level from slipping, tripping and stumbling without subsequent striking against object, initial encounter; Y93.89 Activity, other specified; Y92.89 Other specified places as the place of occurrence of the external cause; Y99.8 Other external cause status; E11.9 Type 2 diabetes mellitus without complications
CPT/HCPCS: 25605; 73110 ×2; 99285; 96374; 96375; J2405; J3010; J1171; 94760; A4606; A4663; J3490